=== PATIENT | male | born 1975 | race Caucasian/White ===

== ENCOUNTER 2025-06-04 15:14 | Emergency (ER) | payer BC, SELFPAY ==
--- NOTE | ~2025-06-04 | XR_ITS ---
EXAMINATION: XR knee LT 3V DATE: 06/04/2025 15:50 INDICATION: Left knee pain TECHNIQUE: Anteroposterior, sunrise and and flexed lateral views of the left knee were obtained COMPARISON: None. FINDINGS: Alignment is normal. No fracture. Joint spaces appear normal. No joint effusion. Prominent soft tiss ue swelling anterior to the tibial insertion of the distal patellar tendon. IMPRESSION: 1. Prominent soft tissue swelling anterior to the distal patellar tendon and location which could be seen with infrapatellar bursitis. No joint effusion or osseous abnormality. Reviewed, dictated and finalized at location A. IMPRESSION: 1. Prominent soft tissue swelling anterior to the distal patellar tendon and lo cation which could be seen with infrapatellar bursitis. No joint effusion or os seous abnormality.
[2025-06-04 15:14] VITALS: BP 117/84; PULSE 81; RESP 16; TEMP 36.8; O2SAT 100
--- NOTE | 2025-06-04 15:44 | ED.LOWEXIN ---
HPI - Extremity Injury (Lower) General Chief Complaint: Extremity Injury, Lower Stated Complaint: knee Time Seen by Provider: 06/04/25 15:36 Source: patient Mode of arrival: ambulatory Limitations: no limitations History of Present Illness HPI Narrative: left knee pain 5-6 days ago. Patient states there is a possibility of kneeling down on a bolt causing back pain. He denies other injuries. Related Data Allergies Allergy/AdvReac Type Severity Reaction Status Date / Time No Known Allergies Allergy Verified 06/04/25 15:23 Review of Systems Review of Systems: All systems reviewed & are unremarkable except as noted in HPI and below Exam Narrative: General appearance: Well-developed, well-nourished Skin: Normal color . Left lower leg examination showing 4 x 5 cm multi color bruises distal left knee medially, distal left leg medially just above the ankle and bluish discoloration of the left ankle medially. Slight tenderness of the bruises. Left knee examination showing no swelling, no bruises, no deformity, no limited range of motion, calf muscle soft, nontender Chest and respiratory: Airway patent, no respiratory distress, no accessory muscle use Heart: Regular rate/rhythm Vascular: Normal peripheral pulses, normal capillary refill. Musculoskeletal: Normal range of motion, nontender back Neurologic: Alert and oriented ?3, [employer] is normal as tested, no gross motor deficit Course Vital Signs Vital signs: Vital Signs Temperature 36.8 C 06/04/25 15:14 Pulse Rate 81 06/04/25 15:14 Respiratory Rate 16 06/04/25 15:14 Blood Pressure 117/84 06/04/25 15:14 Pulse Oximetry 100 06/04/25 15:14 Oxygen Delivery Room Air 06/04/25 15:14 Temperature 36.8 C 06/04/25 15:14 Pulse Rate 81 06/04/25 15:14 Respiratory Rate 16 06/04/25 15:14 Blood Pressure 117/84 06/04/25 15:14 Pulse Oximetry 100 06/04/25 15:14 Oxygen Delivery Room Air 06/04/25 15:14 MDM - Extremity Injury (Lower) MDM Narrative Medical decision making narrative: patient high likely got contusion to left lower leg causing hematoma, spread distally with gravity over the last 6 days with multi colored process. X-ray of the left knee showed no acute abnormalities Differential Diagnosis Differential diagnosis: Likely other ( contusion, hematoma) Imaging Data Radiologist's impression: Impressions Knee X-Ray 06/04/25 15:51 IMPRESSION: 1. Prominent soft tissue swelling anterior to the distal patellar tendon and location which could be seen with infrapatellar bursitis. No joint effusion or osseous abnormality. Critical Care Time Critical Care Time Critical Care Time: No Discharge Plan Discharge Clinical Impression: Contusion of left leg Patient Disposition: Home Condition: Stable Instructions: Contusion in Adults (ED) Additional Instructions: Return if symptoms are worsening , call your family physician for appointment, take Tylenol, ibuprofen as as needed for aches and pain, continue home medications. Keep leg elevated Patient Language: Nepali Follow-up/Referrals: Nigel Hilario MD [Primary Care Provider] -
== END 2025-06-04 16:10 | disposition home or self-care (01) ==
LOC: CHSED 15:54
PROVIDERS: Emergency Provider Emergency Medicine; PCP Family Medicine
DX: S80.12XA Contusion of left lower leg, initial encounter (principal); X58.XXXA Exposure to other specified factors, initial encounter
CPT/HCPCS: 73562; 99283